=== PATIENT | female | born 1985 | race American Indian/Alaskan Native ===

== ENCOUNTER 2016-03-21 21:35 | Emergency (ER) | payer MEDICAID, OTHER ==
[2016-03-21 22:24] LABS: Basophils % (Auto) 0.5 % (0.0-1.8); Eosinophils % (Auto) 3.9 % (0.0-4.3); Hematocrit 35.8 % (30.3-42.9); Hemoglobin 11.8 gm/dl (10.1-14.3); Mean Corpuscular HGB Conc 33 % (30-34); Mean Corpuscular Hemoglobin 27 pg (28-32); Mean Corpuscular Volume 81 fl (79-97); Platelet Count 198 K/mm3 (140-440); Red Blood Count 4.45 M/mm3 (3.65-5.03); Red Cell Distribution Width 14.4 % (13.2-15.2); White Blood Count 5.1 K/mm3 (4.5-11.0)
[2016-03-21 22:33] LABS: Bilirubin,Urine NEG (Negative); Blood,Urine NEG (Negative); Ketones,Urine NEG (Negative); Leukocyte Esterase,Urine SM (Negative); Mucus,Urine FEW /HPF; Nitrite,Urine NEG (Negative); Protein,Urine <15 mg/dL mg/dL (Negative); Urobilinogen,Urine < 2.0 mg/dL (<2.0)
[2016-03-21 22:44] LABS: Alanine Aminotransferase 21 units/L (7-56); Albumin 3.5 g/dL (3.9-5); Alkaline Phosphatase 56 units/L (35-129); Bilirubin,Total < 0.2 mg/dL (0.1-1.2); Blood Urea Nitrogen 6 mg/dL (7-17); Calcium 8.7 mg/dL (8.4-10.2); Carbon Dioxide 24 mmol/L (22-30); Glucose 106 mg/dL (65-100); Lipase 28 units/L (13-60); Potassium 3.4 mmol/L (3.6-5.0); Sodium 136 mmol/L (137-145)
[2016-03-21 22:46] LABS: Anion Gap 16 mmol/L
[2016-03-22] MEDS ORDERED: TYLENOL ONE ×2 (00:20→00:21)
[2016-03-22] MEDS ORDERED: TYLENOL PO ONE (00:28)
--- NOTE | 2016-03-22 01:23 | Ultrasound Report ---
FINAL REPORT PROCEDURE: US OB < = 14 WEEKS FETUS TECHNIQUE: Real-time transabdominal and transvaginal sonography of the uterus, placenta, amniotic fluid, adnexa, and fetus was performed with image documentation. Measurements were obtained to determine age/size. M-mode Doppler was used to document heartbeat. CPT 12129 and 37513 HISTORY: lower abdominal cramping COMPARISON: No prior studies are available for comparison. FINDINGS: ADDITIONAL GESTATION: None. CRL: 48 mm, which corresponds to a gestational age of: 11 weeks, 4 days. Yolk Sac: Normal. Embryonic Cardiac Activity: 192 beats per minute Gestational Sac: There is a small subchorionic hemorrhage. Amniotic fluid: Normal. Cervix: Normal. Right Ovary: Normal. Left Ovary: Normal. Estimated delivery date: 10/07/2016 Uterus and adnexa: As above IMPRESSION: 1. Single live intrauterine gestation at approximately 11 weeks, 4 days. 2. EDC by US 10/07/2016 3. Complete anatomic survey at 18-20 weeks suggested. PROCEDURE: TECHNIQUE: HISTORY: COMPARISON: FINDINGS: IMPRESSION:
--- NOTE | 2016-03-22 01:23 | Ultrasound Report ---
FINAL REPORT PROCEDURE: US OB < = 14 WEEKS FETUS TECHNIQUE: Real-time transabdominal and transvaginal sonography of the uterus, placenta, amniotic fluid, adnexa, and fetus was performed with image documentation. Measurements were obtained to determine age/size. M-mode Doppler was used to document heartbeat. CPT 79150 and 08061 HISTORY: lower abdominal cramping COMPARISON: No prior studies are available for comparison. FINDINGS: ADDITIONAL GESTATION: None. CRL: 48 mm, which corresponds to a gestational age of: 11 weeks, 4 days. Yolk Sac: Normal. Embryonic Cardiac Activity: 192 beats per minute Gestational Sac: There is a small subchorionic hemorrhage. Amniotic fluid: Normal. Cervix: Normal. Right Ovary: Normal. Left Ovary: Normal. Estimated delivery date: 10/07/2016 Uterus and adnexa: As above IMPRESSION: 1. Single live intrauterine gestation at approximately 11 weeks, 4 days. 2. EDC by US 10/07/2016 3. Complete anatomic survey at 18-20 weeks suggested.
[2016-03-22 05:29] VITALS: BP 103/64
--- NOTE | 2016-03-23 14:02 | ED Elopement Review ---
ED Pt Elopement review - Results review Lab results: Laboratory Tests 03/21/16 03/21/16 03/21/16 22:02 22:11 22:11 WBC 5.1 RBC 4.45 Hgb 11.8 Hct 35.8 MCV 81 MCH 27 L MCHC 33 RDW 14.4 Plt Count 198 Lymph % (Auto) 14.6 [place] % (Auto) 10.0 H Eos % (Auto) 3.9 Baso % (Auto) 0.5 Lymph # 0.7 L [place] # 0.5 Eos # 0.2 Baso # 0.0 Seg Neutrophils % 71.0 H Seg Neutrophils # 3.6 Sodium 136 L Potassium 3.4 L Chloride 99.0 Carbon Dioxide 24 Anion Gap 16 BUN 6 L Creatinine 0.5 L Estimated GFR > 60 BUN/Creatinine Ratio 12.00 Glucose 106 H Calcium 8.7 Total Bilirubin < 0.2 AST 20 ALT 21 Alkaline Phosphatase 56 Total Protein 7.0 Albumin 3.5 L Albumin/Globulin Ratio 1.0 Lipase 28 HCG, Quant Urine Color Yellow Urine Turbidity Clear Urine pH 6.0 Ur Specific [place] 1.009 Urine Protein <15 mg/dl Urine Glucose (UA) Neg Urine Ketones Neg Urine Blood Neg Urine Nitrite Neg Urine Bilirubin Neg Urine Urobilinogen < 2.0 Ur Leukocyte Esterase Sm Urine WBC (Auto) 3.0 Urine RBC (Auto) 2.0 U Epithel Cells (Auto) 7.0 Urine Mucus Few 03/21/16 22:11 WBC RBC Hgb Hct MCV MCH MCHC RDW Plt Count Lymph % (Auto) [place] % (Auto) Eos % (Auto) Baso % (Auto) Lymph # [place] # Eos # Baso # Seg Neutrophils % Seg Neutrophils # Sodium Potassium Chloride Carbon Dioxide Anion Gap BUN Creatinine Estimated GFR BUN/Creatinine Ratio Glucose Calcium Total Bilirubin AST ALT Alkaline Phosphatase Total Protein Albumin Albumin/Globulin Ratio Lipase HCG, Quant 67602 H Urine Color Urine Turbidity Urine pH Ur Specific [place] Urine Protein Urine Glucose (UA) Urine Ketones Urine Blood Urine Nitrite Urine Bilirubin Urine Urobilinogen Ur Leukocyte Esterase Urine WBC (Auto) Urine RBC (Auto) U Epithel Cells (Auto) Urine Mucus - Call Back decision Pt Call Back Decision: No action required
== END 2016-03-22 19:58 | disposition left against medical advice (07) ==
LOC: ED 21:35
DX: O21.9 Vomiting of pregnancy, unspecified (principal); R50.9 Fever, unspecified; M79.1 Myalgia; R10.30 Lower abdominal pain, unspecified; E03.9 Hypothyroidism, unspecified; Z3A.11 11 weeks gestation of pregnancy; Z53.21 Procedure and treatment not carried out due to patient leaving prior to being seen by health care provider
CPT/HCPCS: 36415; 76801; 76817; 80053; 81001; 83690; 84702; 85025

== ENCOUNTER 2016-05-28 10:01 | Outpatient (CLI) | payer OTHER, MEDICAID ==
--- NOTE | 2016-05-28 11:08 | XRay Report ---
Chest 2 views: History: Tuberculosis. Findings: Normal cardiomediastinal silhouette. Trachea is midline. No consolidation, pneumothorax or pleural effusion. Impression: No acute cardiopulmonary findings.
== END 2016-05-28 10:02 | disposition home or self-care (01) ==
LOC: XRAY 10:01
PROVIDERS: ATTEND Nurse Practitioner Women's Health
DX: Z86.11 Personal history of tuberculosis (principal)
CPT/HCPCS: 71020

== ENCOUNTER 2016-05-29 14:20 | Outpatient (CLI) | payer OTHER, MEDICAID ==
[2016-05-29 14:37] VITALS: BP 107/54
[2016-05-29] MEDS ORDERED: LACTATED RINGERS 500 ML IV ONE (14:59)
[2016-05-29 15:45] LABS: Bilirubin,Urine NEG (Negative); Blood,Urine NEG (Negative); Ketones,Urine NEG (Negative); Leukocyte Esterase,Urine MOD (Negative); Mucus,Urine FEW /HPF; Nitrite,Urine NEG (Negative); Protein,Urine <15 mg/dL mg/dL (Negative); Urobilinogen,Urine < 2.0 mg/dL (<2.0)
== END 2016-05-29 15:47 | disposition home or self-care (01) ==
LOC: TRG 14:20
PROVIDERS: ATTEND Obstetrics & Gynecology
DX: O47.02 False labor before 37 completed weeks of gestation, second trimester (principal); Z3A.20 20 weeks gestation of pregnancy
CPT/HCPCS: 81001; J7120

== ENCOUNTER 2016-05-30 04:20 | Inpatient (IN) | payer OTHER, MEDICAID ==
[2016-05-30] MEDS ORDERED: LACTATED RINGERS 1,000 ML ONE (05:13)
[2016-05-30] MEDS ORDERED: ZOFRAN IV PRN ×2 (05:29→13:10)
[2016-05-30] MEDS ORDERED: ALUM-MAG HYDROX-SIMETH 200-200-20MG/5ML PO PRN (05:29)
[2016-05-30] MEDS ORDERED: TYLENOL PO PRN (05:29)
[2016-05-30] MEDS ORDERED: MILK OF MAGNESIA PO PRN ×2 (05:29→13:10)
[2016-05-30] MEDS ORDERED: MYLICON PO PRN (05:29)
[2016-05-30] MEDS ORDERED: SENOKOT S PO PRN (05:29)
[2016-05-30] MEDS ORDERED: COLACE PO PRN (05:29)
--- NOTE | 2016-05-30 05:41 | History and Physical Report ---
History of Present Illness Date of examination: 05/30/16 ( labor/known short cervix) Chief complaint: patient arrived to hospital with c/o vaginal bleeding and occasional cramping @ 20+5 weeks. This was her second visit in 24h, first visit was for cramping.[facility] Hyper[facility]-after radiation treatments and she was recently noted to have a short cervix with no residual cervix on u/s. patient started 17OHP injections 05/29/16. History of present illness: EDC Confirmation: 10/12/2016 Past History : 3 Term Births: 1 Premature Births: 1 Living Children: 2 Para: 2 # 1 Delivery date: 2010 Weeks Gestation: 39 Delivery type: Anesthesia type: epidural Delivery location: [place] Infant Sex: Male weight: 6-5 Comments: thyroid dz # 2 Delivery date: 2013 Weeks Gestation: 36.6 Delivery type: Anesthesia type: epidural Delivery location: [facility] Sex: Female weight: 7-5 Comments: thyroid dz Past Medical History: Hyperthyroidism-after radiation treatments currently hypothyroid Past Surgical History: Negative Past Surgical History Past Medical History Surgery (Non-flyer builder): Negative Past Surgical History Abnormal PAP: negative TRE Exposure: negative Infertility: negative Uterine Anomaly: negative Uterine Surgery (not C/S): negative Other Gynecologic Problems: negative Medical History Comments: thyriod dz Family Hx: Dm-mgm Breast CA-(M) aunt Social Hx: no e/t/d [place] [facility] Infection History Hx of STD: HSV II Personal hx. of genital herpes: yes Partner hx. of genital herpes: no Varicella/Chicken Pox Status: Previous Disease Genetic History Congenital Heart Defect: Mom: no Dad: no Peg Disease: Mom: no Dad: no Thalassemia Mom: no Dad: no Neural Tube Defect Mom: no Dad: no Down's Syndrome Mom: no Dad: no Castro-Sachs Mom: no Dad: no Sickle Cell Disease/Trait Mom: no Dad: no Hemophilia Mom: no Dad: no Muscular Dystrophy Mom: no Dad: no Cystic Fibrosis Mom: no Dad: no [place] Chorea Mom: no Dad: no Mental Retardation Mom: no Dad: no Fragile X Mom: no Dad: no Other Genetic/Chromosomal Disorder Mom: no Dad: no Child w/other defect Mom: no Dad: no Enviromental Exposures Xray Exposure: yes Medication, drug, or alcohol use since LMP: no Chemical/Other Exposure: no Exposure to Cat Liter: no Hx of Parvovirus (Fifth Disease): no Occupational Exposure to Children: none Comments: had xray with shield with dentist Active Medications: LIOTHYRONINE SODIUM 5 MCG ORAL TABS (LIOTHYRONINE SODIUM) LEVOTHYROXINE SODIUM 150 MCG ORAL TABS (LEVOTHYROXINE SODIUM) Current Allergies: No known allergies Past History Past Medical History: thyroid disease - Obstetrical History Expected Date of Delivery: 10/12/16 Actual Gestation: 20 Week(s) 5 Day(s) : 3 Para: 2 Hx # Term Pregnancies: 1 Number of Pregnancies: 1 Spontaneous Abortions: 0 Induced : 0 Number of Living Children: 2 Medications and Allergies Allergies Allergy/AdvReac Type Severity Reaction Status Date / Time No Known Allergies Allergy Unverified 05/30/16 05:42 Home Medications Medication Instructions Recorded Confirmed Last Taken Type Levothyroxine [Synthroid] 150 mcg PO DAILY 10/25/13 10/25/13 Unknown History Liothyronine Sodium [Cytomel] 5 mcg PO QDAY 05/30/16 05/30/16 05/29/16 History Active Meds: Active Medications Acetaminophen (Tylenol) 650 mg PO Q4H PRN PRN Reason: Pain MILD(1-3)/Fever >100.5/ENNIS Al Hydrox/Mg Hydrox/Simethicone (Alum-Mag Hydrox-Simeth 612-900-60pg/5ml) 30 ml PO Q6H PRN PRN Reason: Indigestion Docusate Sodium (Colace) 100 mg PO Q12H PRN PRN Reason: Constipation Lactated Ringer's (Lactated Ringers) 1,000 mls @ 125 mls/hr IV DIRECT KELLI Magnesium Hydroxide (Milk Of Magnesia) 30 ml PO QHS PRN PRN Reason: Laxative Effect Multivitamins/Iron/Calcium ( Vitamin) 1 each PO QDAY KELLI Ondansetron HCl (Zofran) 4 mg IV Q6H PRN PRN Reason: Nausea And Vomiting Senna/Docusate Sodium (Senokot S) 2 tab PO Q12H PRN PRN Reason: Laxative Effect Simethicone (Mylicon) 80 mg PO Q6H PRN PRN Reason: Gas pain Review of Systems All systems: negative - Vital Signs Vital signs: Vital Signs Resp 18 05/29/16 14:52 Temp Pulse Resp BP Pulse Ox 92 H 18 104/58 98 05/30/16 05:33 05/29/16 14:52 05/30/16 05:17 05/30/16 05:33 - Physical Exam Cardiovascular: Regular rate Lungs: Positive: Normal air movement Abdomen: Positive: normal appearance Genitourinary (Female): Positive: normal external genitalia, normal perenium Extremities: Positive: normal - Obstetrical Uterine Contraction Monitor Mode: External Results All other labs normal. Laboratory Data-Patient Name: KATYA VASQUEZ Test Date Result Blood Type 03/25/2016 A Rh 03/25/2016 Positive Antibody Screen negative Rubella 03/25/2016 immune Serology (RPR) 03/25/2016 nonreactive HBsAg 03/25/2016 Negative Hemoglobin 03/25/2016 11.9 Hematocrit 03/25/2016 37.9 Platelets 03/25/2016 243 [id number] Chlamydia DNA 02/26/2016 Negative GC DNA/Culture 02/26/2016 Urine Culture 05/20/2016 Final report Group B Strep cult PAP HIV 03/25/2016 Neg AFP/Quad Screen 05/20/2016 Glucola Test 3hr GTT (Fasting) 1 hr 2 hr 3 hr OPTIONAL LABS-Patient Name:KATYA VASQUEZ Test Date Result Varicella Ab Sickle Cell 03/25/2016 Negative PPD Fibronectin Cystic Fibrosis Parvovirus TSH 04/22/2016 1.060 Free T4 04/22/2016 1.12 Hepatitis C ALT AST Uric Acid Creatinine 24 hr Urine Protein BRANDEE Assessment and Plan 30 y/o @ 20w5d, no cervix noted during SVE, BBOW, no parts noted. Plan for expectant management. Spoke with patient and she is aware that she is 3 weeks away from viability and it is likely she will del a nonviable baby. - Patient Problems (1) 20 weeks gestation of Current Visit: Yes Status: Acute (2) Incompetence of cervix Current Visit: Yes Status: Acute (3) Hypothyroidism Current Visit: Yes Status: Acute Qualifiers: Hypothyroidism type: H
[2016-05-30] MEDS ORDERED: LACTATED RINGERS 1,000 ML IV SCH (06:00)
[2016-05-30 06:11] LABS: Basophils % (Auto) 0.6 % (0.0-1.8); Eosinophils % (Auto) 1.2 % (0.0-4.3); Hematocrit 34.1 % (30.3-42.9); Hemoglobin 11.2 gm/dl (10.1-14.3); Mean Corpuscular HGB Conc 33 % (30-34); Mean Corpuscular Hemoglobin 27 pg (28-32); Mean Corpuscular Volume 82 fl (79-97); Platelet Count 201 K/mm3 (140-440); Red Blood Count 4.19 M/mm3 (3.65-5.03); Red Cell Distribution Width 14.6 % (13.2-15.2)
[2016-05-30] MEDS: SYNTHROID PO SCH (06:45)
[2016-05-30] MEDS ORDERED: PRENATAL VITAMIN PO SCH (10:00)
[2016-05-30] MEDS ORDERED: PITOCin/NS 20 UNIT/1000ML DRIP 20,000 MILLIUNITS/1,000 ML BAG IV ONE (11:30)
--- NOTE | 2016-05-30 11:56 | Progress Note ---
Assessment and Plan - Patient Problems (1) labor in second trimester Current Visit: Yes Status: Acute Qualifiers: labor delivery status: P Fetus number: F Plan to address problem: -cont expectant management (2) 20 weeks gestation of Current Visit: Yes Status: Acute (3) Hypothyroidism Current Visit: Yes Status: Acute Qualifiers: Hypothyroidism type: H (4) Incompetence of cervix Current Visit: Yes Status: Acute Subjective - Subjective Date of service: 05/30/16 (LATE ENTRY PT SEEN EARLIER THIS AM) Principal diagnosis: 20 07/12 PTL Interval history: Since admission pt has continued to have more vaginal bleeding and on exam is completely dilated with a bulging bag of water. No parts could be palpated due to the bag being so tense. I d/w that she is going to delivery and that at this point there are no medications that can be given as she is fully dilated. I did d/w that I would not start any medications ie pitocin to facilitate the delivery unless there is s/sx of choroi which at this time she does not have. I spent several minutes at the bedside d/w labor vs cervical incompetence and that she may benefit from a cerclage with the next gestation. There was bloody show noted on july exam as well. Pt expressed understanding and all questions were addressed and answered. She expressed understanding of previable state of fetus and the there are not medical interventin that are done at this time due to her gestational age and the fact that the lung are still developing. Again pt expressed understanding an questions were addressed and answered. Patient reports: vaginal bleeding, contractions Objective - Vital Signs Vital Signs: Vital Signs - 12hr 05/30/16 05/30/16 05/30/16 05:13 05:17 05:18 Temperature Pulse Rate 94 H 93 H 92 H Pulse Rate [ From Monitor] Respiratory Rate Blood Pressure 104/58 Blood Pressure [Right Arm] O2 Sat by Pulse 96 97 Oximetry 05/30/16 05/30/16 05/30/16 05:23 05:28 05:32 Temperature 98.2 F Pulse Rate 93 H 98 H Pulse Rate [ From Monitor] Respiratory 20 Rate Blood Pressure Blood Pressure [Right Arm] O2 Sat by Pulse 97 98 Oximetry 05/30/16 05/30/16 05/30/16 05:33 05:38 05:43 Temperature Pulse Rate 92 H 95 H 98 H Pulse Rate [ From Monitor] Respiratory Rate Blood Pressure Blood Pressure [Right Arm] O2 Sat by Pulse 98 97 98 Oximetry 05/30/16 05/30/16 05/30/16 05:48 05:53 05:58 Temperature Pulse Rate 91 H 97 H 98 H Pulse Rate [ From Monitor] Respiratory Rate Blood Pressure Blood Pressure [Right Arm] O2 Sat by Pulse 97 97 98 Oximetry 05/30/16 05/30/16 05/30/16 06:03 06:08 06:13 Temperature Pulse Rate 95 H 97 H 97 H Pulse Rate [ From Monitor] Respiratory Rate Blood Pressure Blood Pressure [Right Arm] O2 Sat by Pulse 97 96 97 Oximetry 05/30/16 05/30/16 05/30/16 06:18 06:23 06:28 Temperature Pulse Rate 100 H 90 91 H Pulse Rate [ From Monitor] Respiratory Rate Blood Pressure Blood Pressure [Right Arm] O2 Sat by Pulse 97 98 97 Oximetry 05/30/16 05/30/16 05/30/16 06:33 06:38 06:43 Temperature Pulse Rate 87 89 96 H Pulse Rate [ From Monitor] Respiratory Rate Blood Pressure Blood Pressure [Right Arm] O2 Sat by Pulse 96 97 97 Oximetry 05/30/16 05/30/16 05/30/16 06:48 06:53 06:58 Temperature Pulse Rate 85 103 H 94 H Pulse Rate [ From Monitor] Respiratory Rate Blood Pressure Blood Pressure [Right Arm] O2 Sat by Pulse 98 97 97 Oximetry 05/30/16 05/30/16 05/30/16 07:03 07:08 07:13 Temperature Pulse Rate 90 96 H 97 H Pulse Rate [ From Monitor] Respiratory Rate Blood Pressure Blood Pressure [Right Arm] O2 Sat by Pulse 98 97 97 Oximetry 05/30/16 05/30/16 05/30/16 07:18 07:19 07:22 Temperature 98.7 F Pulse Rate 94 H 92 H Pulse Rate [ 92 H From Monitor] Respiratory 18 Rate Blood Pressure 102/61 Blood Pressure 102/61 [Right Arm] O2 Sat by Pulse 94 94 Oximetry 05/30/16 05/30/16 05/30/16 07:23 07:28 07:33 Temperature Pulse Rate 91 H 93 H 103 H Pulse Rate [ From Monitor] Respiratory Rate Blood Pressure Blood Pressure [Right Arm] O2 Sat by Pulse 97 97 98 Oximetry 05/30/16 05/30/16 07:38 07:43 Temperature Pulse Rate 93 H 86 Pulse Rate [ From Monitor] Respiratory Rate Blood Pressure Blood Pressure [Right Arm] O2 Sat by Pulse 98 96 Oximetry - Exam Uterus: Present: normal FHR: auscultation normal Cervical Dilatation: 10 Cervical Effacement Percentage: 100 station: 1+(amiotic bag/ not fetus as it was not palpated on exam) Uterine Contraction Pattern: Irregular - Labs Labs: Abnormal Labs 05/30/16 05:20 MCH 27 L Laboratory Results - last 24 hr 05/30/16 05/30/16 05:20 05:20 WBC 10.0 RBC 4.19 Hgb 11.2 Hct 34.1 MCV 82 MCH 27 L MCHC 33 RDW 14.6 Plt Count 201 Lymph % (Auto) 22.6 [place] % (Auto) 6.3 Eos % (Auto) 1.2 Baso % (Auto) 0.6 Lymph # 2.3 [place] # 0.6 Eos # 0.1 Baso # 0.1 Seg Neutrophils % 69.3 Seg Neutrophils # 7.0 Blood Type A POSITIVE Antibody Screen Negative
[2016-05-30] MEDS ORDERED: SUBLIMAZE IV PRN (12:00)
[2016-05-30] MEDS ORDERED: SUBLIMAZE IV SCH (12:00)
[2016-05-30] MEDS ORDERED: PITOCin/NS 30 UNIT/500ML 30 UNITS/500 ML BAG IV SCH (12:00)
[2016-05-30] MEDS ORDERED: PITOCin/NS 20 UNIT/1000ML DRIP 20 UNITS/1,000 ML BAG IV SCH (12:00)
[2016-05-30] MEDS ORDERED: STADOL IV PRN (12:16)
--- NOTE | 2016-05-30 12:23 | Consultation ---
History of Present Illness Consult date: 05/30/16 Past History Past Medical History: thyroid disease - Obstetrical History : 3 Medications and Allergies Allergies Allergy/AdvReac Type Severity Reaction Status Date / Time No Known Allergies Allergy Unverified 05/30/16 05:42 Home Medications Medication Instructions Recorded Confirmed Last Taken Type Levothyroxine [Synthroid] 150 mcg PO DAILY 10/25/13 05/30/16 05/29/16 History Liothyronine Sodium [Cytomel] 5 mcg PO QDAY 05/30/16 05/30/16 05/29/16 History Vit-Fe Fumar-FA [ 1 tab PO QDAY 05/30/16 05/30/16 05/29/16 History Vitamin] Active Meds: Active Medications Acetaminophen (Tylenol) 650 mg PO Q4H PRN PRN Reason: Pain MILD(1-3)/Fever >100.5/ENNIS Al Hydrox/Mg Hydrox/Simethicone (Alum-Mag Hydrox-Simeth [id number]/5ml) 30 ml PO Q6H PRN PRN Reason: Indigestion Butorphanol Tartrate (Stadol) 2 mg IV Q2H PRN PRN Reason: Labor Pain Docusate Sodium (Colace) 100 mg PO Q12H PRN PRN Reason: Constipation Fentanyl (Sublimaze) 100 mcg IV Q2H PRN PRN Reason: LABOR PAINS Last Admin: 05/30/16 11:23 Dose: 100 mcg Lactated Ringer's (Lactated Ringers) 1,000 mls @ 125 mls/hr IV DIRECT KELLI Oxytocin/Sodium Chloride (Pitocin/Ns 20 Unit/1000ml Drip) 20 units in 1,000 mls @ 125 mls/hr IV DIRECT KELLI Oxytocin/Sodium Chloride (Pitocin/Ns 30 Unit/500ml) 30 units in 500 mls @ 0 mls /hr IV TITR KELLI; As Directed PRN Reason: Protocol Levothyroxine Sodium (Synthroid) 150 mcg PO DAILY@0600 [facility] Last Admin: 05/30/16 06:45 Dose: 150 mcg Magnesium Hydroxide (Milk Of Magnesia) 30 ml PO QHS PRN PRN Reason: Laxative Effect Multivitamins/Iron/Calcium ( Vitamin) 1 each PO QDAY [facility] Last Admin: 05/30/16 10:40 Dose: 1 each Ondansetron HCl (Zofran) 4 mg IV Q6H PRN PRN Reason: Nausea And Vomiting Senna/Docusate Sodium (Senokot S) 2 tab PO Q12H PRN PRN Reason: Laxative Effect Simethicone (Mylicon) 80 mg PO Q6H PRN PRN Reason: Gas pain - Vital Signs Vital signs: Vital Signs Resp 18 05/29/16 14:52 Temp Pulse Resp BP Pulse Ox 98.5 F 77 20 99/58 97 05/30/16 11:58 05/30/16 11:58 05/30/16 11:58 05/30/16 11:58 05/30/16 11:58 Results Result Diagrams: 05/30/16 05:20 Abnormal lab results 05/30/16 Range/Units 05:20 MCH 27 L (28-32) pg All other labs normal. Assessment and Plan PT seen Full consult on chart
--- NOTE | 2016-05-30 13:02 | Event Note ---
Date: 05/30/16 Called by nursing staff. Arrived to find pt delivered with fetus in sac and placenta still attached.
--- NOTE | 2016-05-30 13:08 | Procedure Note ---
OB Delivery Note - Delivery Date of Delivery: 05/30/16 Surgeon: JERSEY BLANCAS Estimated blood loss: 200cc - Vaginal Delivery presentation: vertex Delivery position: OA Intrapartum events: labor-<37 weeks Delivery induction: none Delivery monitor: external uterine Route of delivery: Anesthesia: intravenous Delivery comments: Pt delivered the fetus in the bag with the cord attached. Minimal bleeding noted after delivery. Several clots noted prior to and after delivery that was passed. EBL 200ml.
[2016-05-30] MEDS ORDERED: DERMOPLAST TP PRN (13:10)
[2016-05-30] MEDS ORDERED: NORCO 5/325 PO PRN (13:10)
[2016-05-30] MEDS ORDERED: TUCKS PAD TP PRN (13:10)
[2016-05-30] MEDS ORDERED: DULCOLAX PR PRN (13:10)
[2016-05-30] MEDS ORDERED: PHENERGAN PO PRN (13:10)
[2016-05-30] MEDS ORDERED: BENADRYL PO PRN (13:10)
[2016-05-30] MEDS ORDERED: PHENERGAN PR PRN (13:10)
[2016-05-30] MEDS ORDERED: LANSINOH TP PRN (13:10)
[2016-05-30] MEDS ORDERED: SODIUM CHLORIDE FLUSH SYRINGE 10 ML IV NR (14:00)
[2016-05-30] MEDS: MOTRIN PO SCH (20:20)
[2016-05-31 01:40] LABS: Hematocrit 29.6 % (30.3-42.9); Hemoglobin 9.6 gm/dl (10.1-14.3)
[2016-05-31] MEDS: MOTRIN PO SCH ×2 (02:00→09:55)
[2016-05-31] MEDS: SYNTHROID PO SCH (07:03)
--- NOTE | 2016-05-31 10:19 | Discharge Summary ---
Providers - Providers Date of Admission: 05/30/16 06:25 Date of discharge: 05/31/16 Attending physician: ALEAH DAHL 05/30/16 05:55 Consult to Physician [CONS] Urgent Consulting Provider: KELLI HEATH Reason For Exam: incompetant cervix Place consult to:: [facility] Notified:: n Primary care physician: ANGELI POWELL Hospitalization Reason for admission: active labor Delivery: Procedure details: see delivery note Episiotomy: none Laceration: none Hospital course: Pt with delivery at 20 weeks. Post course was not complicated. Pt will be d/c home today. Condition at discharge: Good Disposition: DISCHARGED TO HOME OR SELFCARE - Discharge Diagnoses (1) labor in second trimester Status: Acute Qualifiers: labor delivery status: P Fetus number: F (2) 20 weeks gestation of Status: Acute (3) Hypothyroidism Status: Acute Qualifiers: Hypothyroidism type: H (4) Incompetence of cervix Status: Acute Plan - Provider Discharge Summary Additional instructions: [] Smoking cessation referral if applicable(refer to patient education folder for contact #) [] Refer to [facility]'s [facility] Booklet Call your doctor immediately for: * Fever > 100.5 * Heavy vaginal bleeding ( >1 pad per hour) * Severe persistent headache * Shortness of breath * Reddened, hot, painful area to leg or breast * Drainage or odor from incision. * Keep incision clean and dry at all times and follow doctor's instructions regarding bathing/showering - Follow up plan Follow up: ANGELI POWELL MD [Primary Care Provider] - 7 Days
[2016-05-31 12:01] VITALS: BP 97/68
--- NOTE | 2016-06-01 07:45 | Ultrasound Report ---
OB ULTRASOUND History: labor. Comment: This examination is just presented to me for interpretation. Technique: Transabdominal ultrasound with Doppler interrogation. Gestation: Single Position: Cephalic Amniotic Fluid: Within normal limits BENIGNO = cm Placenta: Anterior Placental Grade: 0 Heart Rate: 164 BPM Cervical length: 0.0 cm (Normal > 3 cm). The cervix appears to be open or extremely thinned. The cervical canal measures approximately 3 cm in diameter. NEUROANATOMY VISUALIZED: Choroid Plexus Cisterna Magnum Cerebellum Lateral Ventricle ANATOMY VISUALIZED: Stomach Kidneys Bladder Diaphragm 4 Chamber Heart Heart 3 Vessel Cord Abd. Cord Insert SPINE VISUALIZED: Longitudinal Transverse AP Limited spine due to position BPD: 4.8 cm = 20 w 4 d HC: 18.1 cm = 20 w 3 d AC: 17.4 cm = 22 w 2 d FL: 3.7 cm = 21 w 5 d HC/AC Ratio: 1.04 Cephalic Index: 78.6 Estimated Weight: 452 grams LMP: Not given Clinical age = 20 w 5 d EDC: 10/12/16 US Gest. Age = 21 w 2 d EDC: 10/08/16
== END 2016-05-31 11:55 | disposition home or self-care (01) | DRG 775 ==
LOC: TRG 04:20 → LD 04:45 → TRG 06:24 → LD 06:25 → OB 17:49
PROVIDERS: ADMIT Obstetrics & Gynecology; ATTEND Obstetrics & Gynecology
PROC: 10E0XZZ Delivery of Products of Conception, External Approach (ICD-10-PCS; principal; 2016-05-30)
DX: O60.12X0 Preterm labor second trimester with preterm delivery second trimester, not applicable or unspecified (principal); O34.32 Maternal care for cervical incompetence, second trimester; O99.284 Endocrine, nutritional and metabolic diseases complicating childbirth; E03.9 Hypothyroidism, unspecified; Z37.1 Single stillbirth; Z3A.20 20 weeks gestation of pregnancy
CPT/HCPCS: 36415; 76805; 85014; 85018; 85025; 86850; 86900; 86901; 88305; J0595; J2590; J3010; J7120

== ENCOUNTER 2017-01-15 05:43 | Day surgery (SDC) | payer OTHER, MEDICAID ==
--- NOTE | 2017-01-14 22:17 | History and Physical Report ---
History of Present Illness Date of examination: 01/11/17 History of present illness: Patient admitted for placement of cerclage due to diagnosis of cervical incompetence Menstrual History Regularity: regular Menses every: 25 days Duration: 7 LMP: 10/10/2016 LMP reliability: month known LMP character: normal test type: urine test Date: 11/18/2016 BC at conception: none Planned ? no EDC Calculations LMP: 07/17/2017 EDC Confirmation: 07/17/2017 Past History : 4 Term Births: 1 Premature Births: 2 Living Children: 2 Para: 2 Mult. Births: 0 Prev : 0 Prev. attempt? 0 Aborta: 0 Elect. Ab: 0 Spont. Ab: 0 Ectopics: 0 # 1 Delivery date: 2010 Weeks Gestation: 39 Delivery type: Anesthesia type: epidural Delivery location: [place] Sex: Male weight: 6-5 Comments: thyroid dz # 2 Delivery date: 2013 Weeks Gestation: 36.6 Delivery type: Anesthesia type: epidural Delivery location: [facility] Infant Sex: Female weight: 7-5 Comments: thyroid dz # 3 Delivery date: 05/30/2016 Weeks Gestation: 20 Delivery type: Vaginal Anesthesia type: none Comments: labor CERVICAL INCOMPETENCE Past Medical History: : Hyperthyroidism-after radiation treatments currently hypothyroid Past Surgical History: Negative Past Surgical History Family History Summary: General Comments - FH: Dm-mgm Breast CA-(M) aunt Social History: no e/t/d [place] Past Medical History Abnormal PAP: negative TRE Exposure: negative Infertility: negative Uterine Anomaly: negative Uterine Surgery (not C/S): negative Other Gynecologic Problems: negative 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 of genital herpes: yes Genetic History Congenital Heart Defect: Mom: no Dad: no Peg Disease: Mom: no Dad: no Thalassemia Mom: no Dad: no Neural Tube Defect Mom: no Dad: no Down's Syndrome Mom: no Dad: no Castro-Sachs Mom: no Dad: no Sickle Cell Disease/Trait Mom: no Dad: no Hemophilia Mom: no Dad: no Muscular Dystrophy Mom: no Dad: no Cystic Fibrosis Mom: no Dad: no [place] Chorea Mom: no Dad: no Mental Retardation Mom: no Dad: no Fragile X Mom: no Dad: no Other Genetic/Chromosomal Disorder Mom: no Dad: no Child w/other defect Mom: no Dad: no Enviromental Exposures Xray Exposure: no Medication, drug, or alcohol use since LMP: yes Exposure to Cat Liter: no Current Allergies (reviewed today): No known allergies Past History Past Medical History: other (See HPI) Past Surgical History: Other (See HPI) Family history: other (See HPI) Medications and Allergies Allergies Allergy/AdvReac Type Severity Reaction Status Date / Time No Known Allergies Allergy Unverified 05/30/16 05:42 Home Medications Medication Instructions Recorded Confirmed Last Taken Type Levothyroxine [Synthroid] 150 mcg PO DAILY 10/25/13 01/15/17 01/14/17 History Liothyronine Sodium [Cytomel] 5 mcg PO QDAY 05/30/16 01/15/17 01/14/17 History Vit-Fe Fumar-FA [ 1 tab PO QDAY 05/30/16 01/15/17 01/14/17 History Vitamin] Active Meds: Active Medications Famotidine (Pepcid) 20 mg IV ONCE ONE Stop: 01/15/17 07:01 Lactated Ringer's (Lactated Ringers) 1,000 mls @ 2,250 mls/hr IV PREOP KELLI Stop: 01/16/17 06:27 Metoclopramide HCl (Reglan) 10 mg IV ONCE ONE Stop: 01/15/17 07:01 Exam - Physical Exam Narrative exam: HEENT: normocephalic, no lesions or deformities Neck/Thyroid: supple, thyroid normal Skin no abnormal lesions or rashes Chest: respiratory effort normal, clear to auscultation Breasts: normal without skin changes or masses CV: regular, normal S1-S2, no murmur, no rub, no gallop Abdomen: Obese, normal bowel sounds, soft, nontender, no HSM Musculoskeletal: grossly normal ROM in joints, no joint tenderness or muscle weakness Neuro: no gross anomalities Extremities: no discoloration or edema ISOLATION WASHER Exams Vulva/Vagina: normal appearance, no discharge, lesions. No evidence of cystocele or rectocele. Cervix: normal appearance, no lesions, no discharge Uterus: normal position, midline, mobile Adnexae: no masses or tenderness Rectovaginal: exam defered Results - Labs CBC & Chem 7: 01/15/17 06:15 Assessment and Plan - Patient Problems (1) Incompetence of cervix Current Visit: No Status: Acute Plan to address problem: Discussed the risks of bleeding, infection, possible rupture of membrane, possible damage to bladder and bowel.Indications for and description of the procedure given. Questions answered. Patient agrees to proceed with cerclage
[2017-01-15] MEDS: LACTATED RINGERS 1,000 ML IV SCH ×2 (06:19→07:00)
[2017-01-15 06:47] LABS: Basophils % (Auto) 0.9 % (0.0-1.8); Eosinophils % (Auto) 1.3 % (0.0-4.3); Hemoglobin 11.7 gm/dl (10.1-14.3); Mean Corpuscular HGB Conc 34 % (30-34); Mean Corpuscular Hemoglobin 27 pg (28-32); Mean Corpuscular Volume 81 fl (79-97); Platelet Count 186 K/mm3 (140-440); Red Blood Count 4.34 M/mm3 (3.65-5.03); Red Cell Distribution Width 15.5 % (13.2-15.2)
[2017-01-15] MEDS ORDERED: PEPCID IV ONE (07:00)
[2017-01-15] MEDS ORDERED: REGLAN IV ONE (07:00)
--- NOTE | 2017-01-15 07:24 | Anesthesia Consultation ---
Anesthesia Consult and Med Hx Date of service: 01/15/17 - Airway Anesthetic Teeth Evaluation: Good ROM Head & Neck: Adequate Mental/Hyoid Distance: Adequate Mallampati Class: Class II Intubation Access Assessment: Probably Good - Pulmonary Exam CTA: Yes - Cardiac Exam Cardiac Exam: RRR - Pre-Operative Health Status ASA Pre-Surgery Classification: ASA2 Proposed Anesthetic Plan: Spinal - Pulmonary Hx Asthma: No COPD: No Hx Pneumonia: No - Cardiovascular System Hx Hypertension: No - Central Nervous System Hx Seizures: No Hx Psychiatric Problems: No - Endocrine Hx Renal Disease: No Hx End Stage Renal Disease: No Hx Hypothyroidism: Yes (takes meds) Hx Hyperthyroidism: No - Hematic Hx Anemia: No Hx Sickle Cell Disease: No - Other Systems Hx Alcohol Use: No
[2017-01-15] MEDS ORDERED: DILAUDID IV PRN (07:25)
--- NOTE | 2017-01-15 07:25 | Anesthesia Day of Surgery ---
Anesthesia Day of Surgery - Day of Surgery Patient Examined: Yes Patient H&P Reviewed: Yes Patient is NPO: Yes
[2017-01-15] MEDS ORDERED: BICITRA PO ONE (07:30)
[2017-01-15] MEDS ORDERED: WATER FOR IRRIG STERILE IR ONE (07:50)
--- NOTE | 2017-01-15 08:12 | Operative Report ---
Operative Report Operative Report: Date of procedure: 01/15/2017 Pre-operative diagnosis: Incompetent cervix, mild cystocele Post-operative diagnosis: Same Procedure name(s): Clarisse cervical cerclage Surgeon: Barry Puri MD Rack Pusher: Anesthesia: Spinal EBL: Minimal Complications: None Findings: Patient was a second-degree cystocele cervix approximately 3 negative past centimeters in length. Specimen(s): None Procedure: Patient was brought to the operating room where spinal anesthesia was induced without difficulty. Patient was then placed in candy cane hanging stirrups. Patient was prepped and draped in usual sterile manner. Bladder was emptied with a red rubber catheter. Weighted speculum was placed in her vagina. The administrative assistant coordinator retracted the bladder anteriorly. Her cervical exam as noted above. Starting at 1:00 using Ethibond Xceed suture the first stitch of the cerclage was placed in pursestring fashion. With the knot tied at 1:00 under moderate stress with no evidence of rupture of amniotic sac. A second stitch was placed in similar fashion slightly distal to the first. The cervix was hemostatic nourished menstrual removed. The patient was counseled to recovery room in good condition. Instrument count correct 2.
--- NOTE | 2017-01-15 08:21 | Short Stay Summary ---
Short Stay Documentation Date of service: 01/15/17 - History H&P: dictated Past Medical History: other (See HPI) Past Surgical History: Other (See HPI) - Allergies and Medications Current Medications: Allergies No Known Allergies Allergy (Unverified 05/30/16 05:42) Home Medications Medication Instructions Recorded Confirmed Last Taken Type Levothyroxine [Synthroid] 150 mcg PO DAILY 10/25/13 01/15/17 01/14/17 History Liothyronine Sodium [Cytomel] 5 mcg PO QDAY 05/30/16 01/15/17 01/14/17 History Vit-Fe Fumar-FA [ 1 tab PO QDAY 05/30/16 01/15/17 01/14/17 History Vitamin] Active Medications Hydromorphone HCl (Dilaudid) 0.25 mg IV Q10MIN PRN PRN Reason: Pain, Moderate (4-6) Stop: 01/18/17 07:26 Lactated Ringer's (Lactated Ringers) 1,000 mls @ 2,250 mls/hr IV PREOP KELLI Stop: 01/16/17 06:27 Last Admin: 01/15/17 07:00 Dose: 2,250 mls/hr Ondansetron HCl (Zofran) 4 mg IV ONCE PRN PRN Reason: Nausea And Vomiting Stop: 01/15/17 07:26 Oxycodone/Acetaminophen (Percocet 5/325) 1 tab PO ONCE PRN PRN Reason: Pain, Moderate (4-6) Stop: 01/15/17 07:26 - Brief post op/procedure progress note Date of procedure: 01/15/17 (see dictated op note) - Hospital course Hospital course: Patient was admitted underwent the above him procedure without any complications. Patient will be discharged with follow-up in office in 1-2 weeks for postop check. - Disposition Disposition: DC- TO HOME OR SELFCARE - Discharge Diagnoses (1) Incompetence of cervix Status: Acute Short Stay Discharge Plan Activity: advance as tolerated Diet: regular Special Instructions: other (no sex) Follow up with: ANGELI POWELL MD [Primary Care Provider] - 7 Days
--- NOTE | 2017-01-15 08:27 | Post Anesthesia Evaluation ---
- Post Anesthesia Evaluation Patient Participated: Yes Airway Patent: Yes Stable Respiratory Function: Yes Temp > 96.8F: Yes Pain Manageable: Yes Adequeate Hydration: Yes Anesthesia Complications: No
[2017-01-15] MEDS ORDERED: LACTATED RINGERS 1,000 ML IV SCH (09:00)
[2017-01-15] MEDS ORDERED: COLACE PO PRN (10:00)
[2017-01-15] MEDS ORDERED: PERCOCET 5/325 PO PRN ×3 (10:00→11:00)
[2017-01-15] MEDS ORDERED: TYLENOL PO PRN (10:00)
[2017-01-15] MEDS ORDERED: ZOFRAN IV PRN (10:00)
[2017-01-15 13:03] VITALS: BP 107/59
== END 2017-01-15 13:15 | disposition home or self-care (01) ==
LOC: LDOR 05:43 → TRG 06:09 → APU 06:50 → LDOR 13:15
PROVIDERS: ATTEND Obstetrics & Gynecology
DX: O34.31 Maternal care for cervical incompetence, first trimester (principal); O34.81 Maternal care for other abnormalities of pelvic organs, first trimester; N81.10 Cystocele, unspecified; O99.281 Endocrine, nutritional and metabolic diseases complicating pregnancy, first trimester; E89.0 Postprocedural hypothyroidism; Z79.899 Other long term (current) drug therapy; Z92.3 Personal history of irradiation; Z3A.13 13 weeks gestation of pregnancy
CPT/HCPCS: 36415; 59320; 85025; 96360; J2765; J7120

== ENCOUNTER 2017-02-03 19:38 | Emergency (ER) | payer OTHER, MEDICAID ==
[2017-02-03 20:23] VITALS: BP 108/61
[2017-02-03 20:54] LABS: Bacteria,Urine 1+ /HPF (Negative); Bilirubin,Urine NEG (Negative); Blood,Urine NEG (Negative); Ketones,Urine TR mg/dL (Negative); Leukocyte Esterase,Urine SM (Negative); Mucus,Urine FEW /HPF; Nitrite,Urine NEG (Negative); Protein,Urine <15 mg/dL mg/dL (Negative); Urobilinogen,Urine < 2.0 mg/dL (<2.0)
--- NOTE | 2017-02-03 23:19 | Ultrasound Report ---
FINAL REPORT EXAM: US OB > = 14 WEEKS FETUS HISTORY: abd pain TECHNIQUE: Ultrasound pelvis transabdominal PRIORS: Comparison is dated March 22, 2016 FINDINGS: Single live intrauterine gestation present Placenta is posterior and fundal cardiac activity is present heart rate of 160 beats per minute cervical length is 2.8 centimeters. There has been placement of a cervical cerclage. position is breech following structures appear unremarkable, choroid plexus, cisterna magna, cerebellum, lateral ventricle, stomach, kidneys, urinary bladder, diaphragm, four-chamber view of the heart and 3 vessel cord biometric measurements were obtained Biparietal diameter 16 weeks 6 days Head circumference 17 weeks 3 days Abdominal circumference 17 weeks 6 days Femur length 17 weeks 6 days Estimated weight is 208 grams Amniotic fluid volume appears adequate. Estimated gestational age based on today's exam is 17 weeks 4 days with estimated delivery July 10, 2017 IMPRESSION: Single live intrauterine gestation estimated at 17 weeks 4 days
== END 2017-02-04 01:48 | disposition left against medical advice (07) ==
LOC: ED 19:38
DX: R10.9 Unspecified abdominal pain (principal); Z53.21 Procedure and treatment not carried out due to patient leaving prior to being seen by health care provider
CPT/HCPCS: 76805; 81001; 81025

== ENCOUNTER 2017-02-07 18:58 | Inpatient (IN) | payer OTHER, MEDICAID ==
--- NOTE | 2017-02-07 20:20 | Emergency Department Report ---
ED HPI - General Chief complaint: OB/Uterine Contractions Stated complaint: WATER BROKE 17 WKS Time Seen by Provider: 02/07/17 20:07 Source: patient Mode of arrival: Ambulatory Limitations: No Limitations - History of Present Illness Initial comments: Patient is 31 years old female 4 para 2 with one miscarriage at 20 weeks in June 2016 history of incompetent cervix. She presented today with contraction and bloody spotting started last night she was seen at [facility] she had a pelvic exam showed that the cervix is 2 cm dilated, ultrasound was done yesterday and showed baby is fine. Patient told me that she had a cerclage done on 01/15/2017. She stated that today around 1730 patient felt a pop and a gush of water came on and since then she has been leaking. Patient denied any fever, nausea or vomiting. MD Complaint: "contractions" - Related Data Home Medications Medication Instructions Recorded Confirmed Last Taken Levothyroxine [Synthroid] 150 mcg PO DAILY 10/25/13 01/15/17 01/14/17 Liothyronine Sodium [Cytomel] 5 mcg PO QDAY 05/30/16 01/15/17 01/14/17 Vit-Fe Fumar-FA [ 1 tab PO QDAY 05/30/16 01/15/17 01/14/17 Vitamin] Allergies Allergy/AdvReac Type Severity Reaction Status Date / Time No Known Allergies Allergy Verified 02/07/17 19:19 ED Review of Systems ROS: Stated complaint: WATER BROKE 17 WKS Other details as noted in HPI Comment: All other systems reviewed and negative Constitutional: denies: chills, fever Respiratory: denies: cough, shortness of breath, SOB with exertion Cardiovascular: denies: chest pain, palpitations, dyspnea on exertion ED Past Medical Hx - Past Medical History Previous Medical History?: Yes Hx Hypertension: No Hx Congestive Heart Failure: No Hx Diabetes: No Hx Deep Vein Thrombosis: No Hx Renal Disease: No Hx Sickle Cell Disease: No Hx Seizures: No Hx Asthma: No Hx COPD: No Hx HIV: No Additional medical history: HYPOTHRYROIDISM, incompetent cervix, delivery at 20 weeks - Surgical History Past Surgical History?: Yes Additional Surgical History: cervical cerclage x1 month, oral surgery - Social History Smoking Status: Never Smoker Substance Use Type: None - Medications Home Medications: Home Medications Medication Instructions Recorded Confirmed Last Taken Type Levothyroxine [Synthroid] 150 mcg PO DAILY 10/25/13 01/15/17 01/14/17 History Liothyronine Sodium [Cytomel] 5 mcg PO QDAY 05/30/16 01/15/17 01/14/17 History Vit-Fe Fumar-FA [ 1 tab PO QDAY 05/30/16 01/15/17 01/14/17 History Vitamin] ED Physical Exam - General Limitations: No Limitations General appearance: alert, in no apparent distress - Head Head exam: Present: atraumatic, normocephalic - Eye Eye exam: Present: normal appearance - ENT ENT exam: Present: normal exam - Neck Neck exam: Present: normal inspection - Respiratory Respiratory exam: Present: normal lung sounds bilaterally. Absent: respiratory distress, wheezes, rales, rhonchi, chest wall tenderness - Cardiovascular Cardiovascular Exam: Present: regular rate, normal rhythm, normal heart sounds - GI/Abdominal GI/Abdominal exam: Present: soft, normal bowel sounds. Absent: distended, tenderness, guarding, rebound, rigid, mass, bruit, pulsatile mass - Extremities Exam Extremities exam: Present: normal inspection, normal capillary refill - Back Exam Back exam: Present: normal inspection. Absent: CVA tenderness (R), CVA tenderness (L) - Neurological Exam Neurological exam: Present: alert, oriented X3, CN II-XII intact - Skin Skin exam: Present: warm, intact, normal color ED Course Vital Signs 02/07/17 19:19 Temperature 98.7 F Pulse Rate 97 H Respiratory 18 Rate Blood Pressure 109/61 O2 Sat by Pulse 99 Oximetry ED Medical Decision Making - Lab Data Result diagrams: 02/07/17 20:47 02/07/17 20:47 - Radiology Data Radiology results: report reviewed Pelvic ultrasound/ ultrasound showed severe oligohydramnios. - Medical Decision Making Discussed with , I informed her about the patient, she is stated that she is coming to evaluate the patient in the ER. Patient evaluated by Dr. Storey, she decided to admit the patient to her service. Critical care attestation.: If time is entered above; I have spent that time in minutes in the direct care of this critically ill patient, excluding procedure time. ED Disposition Clinical Impression: Rupture, membranes, premature, Incompetence of cervix, Oligohydramnios due to rupture of membranes Disposition: DC-09 OP ADMIT IP TO THIS HOSP Is pt being admited?: No Condition: Stable Referrals: PRIMARY CARE, [Referring] - 3-5 Days
[2017-02-07] MEDS ORDERED: NACL 0.9% 1000 ML 1,000 ML IV ONE (20:27)
[2017-02-07 21:10] LABS: Basophils % (Auto) 0.5 % (0.0-1.8); Eosinophils % (Auto) 1.5 % (0.0-4.3); Hematocrit 36.5 % (30.3-42.9); Hemoglobin 11.9 gm/dl (10.1-14.3); Mean Corpuscular HGB Conc 33 % (30-34); Mean Corpuscular Hemoglobin 27 pg (28-32); Mean Corpuscular Volume 81 fl (79-97); Platelet Count 179 K/mm3 (140-440); Red Cell Distribution Width 15.1 % (13.2-15.2); White Blood Count 9.7 K/mm3 (4.5-11.0)
[2017-02-07 21:18] LABS: Alanine Aminotransferase 16 units/L (7-56); Albumin 3.2 g/dL (3.9-5); Alkaline Phosphatase 49 units/L (35-129); Anion Gap 16 mmol/L; BUN/Creatinine Ratio 10; Bilirubin,Total < 0.20 mg/dL (0.1-1.2); Blood Urea Nitrogen 4 mg/dL (7-17); Calcium 8.4 mg/dL (8.4-10.2); Carbon Dioxide 23 mmol/L (22-30); Chloride 99.5 mmol/L (98-107); Glucose 77 mg/dL (65-100); Potassium 3.7 mmol/L (3.6-5.0); Sodium 135 mmol/L (137-145); Total Protein 6.3 g/dL (6.3-8.2)
--- NOTE | 2017-02-07 21:34 | Event Note ---
Date: 02/07/17 Appears to be SROM. Will admit for obs
[2017-02-07 21:36] LABS: Bilirubin,Urine NEG (Negative); Blood,Urine LG (Negative); Ketones,Urine NEG (Negative); Leukocyte Esterase,Urine LG (Negative); Nitrite,Urine NEG (Negative); Urobilinogen,Urine < 2.0 mg/dL (<2.0)
[2017-02-07 21:37] LABS: RBC,Urine > 182.0 /HPF (0.0-6.0)
--- NOTE | 2017-02-07 22:10 | Ultrasound Report ---
FINAL REPORT PROCEDURE: Obstetrical ultrasound. TECHNIQUE: Real-time transabdominal sonography of the uterus, placenta, amniotic fluid, adnexa, and fetus was performed with image documentation. Measurements were obtained to determine age/size. M-mode Doppler was used to document heartbeat. CPT 58878 HISTORY: 17 wks, Water Broke, assess for Amniotic fluids COMPARISON: Obstetrical ultrasound 02/03/2017. FINDINGS: There is a single intrauterine fetus in breech presentation. Cardiac activity is documented at 119 beats per minute. There is no visible amniotic fluid. The amniotic fluid index measures less than 1 centimeter. The placenta is posterior in location. The measured parameters are as follows: Biparietal diameter 3.7 centimeters, head circumference 14.4 centimeters, abdominal circumference 12.7 centimeters, femur length 2.4 centimeters. The calculated menstrual age is 17 weeks 5 days. The estimated date of confinement is 07/13/2017. IMPRESSION: Severe oligohydramnios. Viable fetus in breech presentation.
[2017-02-07] MEDS ORDERED: TYLENOL PO PRN (22:53)
[2017-02-07] MEDS ORDERED: COLACE PO PRN (22:53)
--- NOTE | 2017-02-07 23:04 | History and Physical Report ---
History of Present Illness Date of examination: 02/07/17 Date of admission: 02/07/2017 Chief complaint: gush of fluid History of present illness: Pt presents to ER after having called provider earlier this evening c/o large gush of fluid. she was not sure at the time if it were amniotic fluid. She was advised to place a pad and observe. Pt states shortly after 5pm she had another episode prompting her to f/u in the ER. Sono shows breech IUP at 17 5/7 with severe oligo. Exam is inconclusive to SROm as only blood seen in the vault and no pooing of amniotic fluid. Findings are c/w with SROM. Pt admitted for antibx and obs at this time for inevitable . Pt has had previous episode of PTL at 20 wks in May of 2016 resulting in diagnosis of cervical incompetence and placement of cerclage with this gestation on last month. Pt denies any fevers or chills but does c/o having vaginal bleeding and lower abdominal pain. Pt was advised when seen by mfm on 02/02/17 that there was a CL of 0.5cm and cx noted funneling below the level of the cerclage stitch. At this time pt was provide SAB precautions. Past History Past Medical History: thyroid disease Past Surgical History: other (cerclage) Social history: no significant social history, - Obstetrical History Expected Date of Delivery: 07/17/17 Actual Gestation: 17 Week(s) 1 Day(s) : 4 Para: 2 Spontaneous Abortions: 1 Number of Living Children: 2 Medications and Allergies Allergies Allergy/AdvReac Type Severity Reaction Status Date / Time No Known Allergies Allergy Verified 02/07/17 19:19 Home Medications Medication Instructions Recorded Confirmed Last Taken Type Levothyroxine [Synthroid] 150 mcg PO DAILY 10/25/13 01/15/17 01/14/17 History Liothyronine Sodium [Cytomel] 5 mcg PO QDAY 05/30/16 01/15/17 01/14/17 History Vit-Fe Fumar-FA [ 1 tab PO QDAY 05/30/16 01/15/17 01/14/17 History Vitamin] Active Meds: Active Medications Acetaminophen (Tylenol) 650 mg PO Q4H PRN PRN Reason: Pain MILD(1-3)/Fever >100.5/ENNIS Docusate Sodium (Colace) 100 mg PO Q12H PRN PRN Reason: Constipation Cefazolin Sodium (Ancef/Ns 1 Gm/50 Ml) 1 gm in 50 mls @ 100 mls/hr IV Q8H KELLI PRN Reason: Protocol Multivitamins/Iron/Calcium ( Vitamin) 1 each PO QDAY KELLI - Vital Signs Vital signs: Vital Signs Temp Pulse Resp BP Pulse Ox 98.7 F 97 H 18 109/61 99 02/07/17 19:19 02/07/17 19:19 02/07/17 19:19 02/07/17 19:19 02/07/17 19:19 Temp Pulse Resp BP Pulse Ox 98.7 F 97 H 18 109/61 99 02/07/17 19:19 02/07/17 19:19 02/07/17 19:19 02/07/17 19:19 02/07/17 19:19 - Physical Exam Cardiovascular: Normal S1, Normal S2 Lungs: Positive: Clear to auscultation, Normal air movement Abdomen: Positive: normal appearance, soft, rigidity. Negative: distention, tenderness Genitourinary (Female): Positive: normal external genitalia, other (+blood present) Vagina: Positive: normal moisture, other (no pooling of amniotic fluid seen) Cervix: Positive: other (stict palpated cx 1cm dilated inside of stitch.) Results Result Diagrams: 02/07/17 20:47 02/07/17 20:47 Abnormal lab results 02/07/17 02/07/17 02/07/17 Range/Units 20:47 20:47 20:47 MCH 27 L (28-32) pg Sodium 135 L (137-145) mmol/L BUN 4 L (7-17) mg/dL Creatinine 0.4 L (0.7-1.2) mg/dL Albumin 3.2 L (3.9-5) g/dL HCG, Quant 81687 H (0-4) mIU/mL Urine WBC (Auto) (0.0-6.0) /HPF 02/07/17 Range/Units 21:00 MCH (28-32) pg Sodium (137-145) mmol/L BUN (7-17) mg/dL Creatinine (0.7-1.2) mg/dL Albumin (3.9-5) g/dL HCG, Quant (0-4) mIU/mL Urine WBC (Auto) 21.0 H (0.0-6.0) /HPF All other labs normal. Assessment and Plan - Patient Problems (1) 17 weeks gestation of Current Visit: Yes Status: Acute (2) Incompetence of cervix Current Visit: Yes Status: Acute Plan to address problem: -cerclage in place (3) Oligohydramnios due to rupture of membranes Current Visit: Yes Status: Acute (4) Rupture, membranes, premature Current Visit: Yes Status: Acute Plan to address problem: -admit -antibx -obs for now for any s/ sx of chorio. Pt understands that if she remains stable though she is SROM'd at this gestaional age she will likely deliver within the next few days. Her labor will only be augmented if there is s/sx of chorio.Again she expressed understanding and questions were addressed and answered. (5) Hypothyroidism Current Visit: No Status: Acute Plan to address problem: -continue current meds -stable (6) labor in second trimester Current Visit: No Status: Acute Qualifiers: Fetus number: single or unspecified fetus Plan to address problem: -closely monitor at this time. was to start 17P.
[2017-02-07] MEDS ORDERED: NACL 0.9% 1000 ML 1,000 ML ONE (23:38)
[2017-02-08] MEDS ORDERED: LACTATED RINGERS 1,000 ML IV SCH (02:00)
[2017-02-08] MEDS: ceFAZolin 1 GM in NACL 0.9% 20 ML IV SCH ×2 (02:07→11:58)
[2017-02-08] MEDS: LACTATED RINGERS 1,000 ML IV SCH ×3 (02:19→15:09)
[2017-02-08] MEDS ORDERED: ceFAZolin 1 GM in NACL 0.9% 20 ML IV SCH (06:00)
--- NOTE | 2017-02-08 06:20 | Event Note ---
Date: 02/08/17 (sole scraper note) pt resting quietly No c/o voiced at this time. Denies any LOF, no bleeding. Uterine toco on no ctx recorded. Pt had c/o cramping earlier in the shift. Reviewed POC as noted in 's H&P. All questions addressed. Will consult with . Pt takes Levothyroxine QD Order in chart dosage based on last recorded dose by [facility] Thyroid labs to be drawn
[2017-02-08] MEDS ORDERED: ANCEF/NS 1 GM/50 ML 1 GM/50 ML BAG IV SCH (06:57)
[2017-02-08] MEDS ORDERED: SYNTHROID PO SCH ×2 (08:00)
--- NOTE | 2017-02-08 08:45 | Ultrasound Report ---
ULTRASOUND OB LIMITED History: Premature rupture of membranes Technique: Transabdominal ultrasound with Doppler interrogation. Comparison: 02/07/17. Gestation: Single Position: Breech Amniotic Fluid: Decreased BENIGNO = 1 cm Heart Rate: 0 BPM Comment: No heart rate is detected consistent with demise.
--- NOTE | 2017-02-08 08:57 | Event Note ---
Date: 02/08/17 (demise confirmed by US) made aware of US findings of demise. Agrees with cerclage removal and IOL with cytotex. Pt aware of demise and desires to move forward with removal of cerclage and IOL. Consented. On exam cord has delivered beyond the os. Cervix is 2-3cm,50% Pt placed stirrups, speculum placed, cerclage knots IDed, cervix cleaned with betadine, knot on anterior grasp with pickup easily cut and removed, second knot IDed @ 3o'clock grasp with supervisor picking crew, cut and easily removed. Pt tolerated procedure well. All questions addressed. Orders in EMR
[2017-02-08] MEDS ORDERED: CYTOTEC PR SCH ×2 (09:30→12:00)
[2017-02-08] MEDS ORDERED: STADOL IV PRN (09:30)
[2017-02-08] MEDS ORDERED: CYTOTEC VG SCH (10:00)
[2017-02-08] MEDS: PRENATAL VITAMIN PO SCH (10:00)
[2017-02-08] MEDS: PITOCin/NS 20 UNIT/1000ML DRIP 20 UNITS/1,000 ML BAG IV SCH ×2 (13:00→20:27)
[2017-02-08] MEDS ORDERED: PITOCin/NS 20 UNIT/1000ML DRIP 20,000 MILLIUNITS/1,000 ML BAG IV ONE (13:02)
[2017-02-08] MEDS: MOTRIN PO PRN ×2 (13:19→20:45)
[2017-02-08] MEDS ORDERED: PHENERGAN PO PRN (13:43)
[2017-02-08] MEDS ORDERED: TUCKS PAD TP PRN (13:43)
[2017-02-08] MEDS ORDERED: DULCOLAX PR PRN (13:43)
[2017-02-08] MEDS ORDERED: ZOFRAN IV PRN (13:43)
[2017-02-08] MEDS ORDERED: MILK OF MAGNESIA PO PRN (13:43)
[2017-02-08] MEDS ORDERED: BENADRYL PO PRN (13:43)
--- NOTE | 2017-02-08 13:54 | Procedure Note ---
OB Delivery Note - Delivery Date of Delivery: 02/08/17 Controlled Atmospheric Furnace Brazer: CAROLINA BUNN Estimated blood loss: <100cc - Vaginal Delivery presentation: breech Intrapartum events: other(please specify) (17wk demise PPROM) Delivery induction: other (cytotec) Route of delivery: Delivery placenta: other (placenta remains; occassional clots; no active bleeding) Delivery comments: Checked pt fetus in vaginal Delivered with one pushDemise Cord clamped Fetus to warmer Pt request to see baby Held baby for a few minutes. Placenta remains undelivered Pitocin IVFs aware. - A at 1 minute: 0 at 5 minutes: 0 Gender: Female (17 wk demise)
[2017-02-08] MEDS ORDERED: SODIUM CHLORIDE FLUSH SYRINGE 10 ML IV SCH (14:00)
[2017-02-08] MEDS ORDERED: CYTOTEC PR ONE (15:54)
[2017-02-08] MEDS ORDERED: REGLAN IV NR (16:30)
[2017-02-08] MEDS ORDERED: PEPCID IV NR (16:30)
[2017-02-08] MEDS ORDERED: BICITRA PO ONE (16:30)
--- NOTE | 2017-02-08 16:34 | Event Note ---
Date: 02/08/17 Patient still without deliver placenta with bleeding. Attempt at delivery and the laboring bed without success.Will move to D&C. Sessile patient indications for operative operative delivery of placenta. Discussed risks of bleeding infection and possible puncture of uterus. Patient understands and agrees to proceed
[2017-02-08] MEDS ORDERED: BICITRA ONE (16:35)
[2017-02-08] MEDS ORDERED: PEPCID IV ONE (16:35)
[2017-02-08] MEDS ORDERED: REGLAN ONE (16:35)
--- NOTE | 2017-02-08 16:35 | Anesthesia Consultation ---
Anesthesia Consult and Med Hx Date of service: 02/08/17 - Airway Anesthetic Teeth Evaluation: Good ROM Head & Neck: Adequate Mental/Hyoid Distance: Adequate Mallampati Class: Class II Intubation Access Assessment: Probably Good - Pre-Operative Health Status ASA Pre-Surgery Classification: ASA2 Proposed Anesthetic Plan: General - Pulmonary Hx Asthma: No COPD: No Hx Pneumonia: No - Cardiovascular System Hx Hypertension: No - Central Nervous System Hx Seizures: No Hx Psychiatric Problems: No - Endocrine Hx Renal Disease: No Hx End Stage Renal Disease: No Hx Hypothyroidism: Yes (takes meds) Hx Hyperthyroidism: No - Hematic Hx Anemia: No Hx Sickle Cell Disease: No - Other Systems Hx Alcohol Use: No
--- NOTE | 2017-02-08 16:36 | Anesthesia Day of Surgery ---
Anesthesia Day of Surgery - Day of Surgery Patient Examined: Yes Patient H&P Reviewed: Yes Patient is NPO: No (patient ate @ 12PM, vomited most of it shortly after)
[2017-02-08] MEDS ORDERED: DILAUDID ONE (16:53)
[2017-02-08] MEDS ORDERED: DIPRIVAN 10 MG/ML IV ONE (16:53)
[2017-02-08] MEDS ORDERED: XYLOCAINE MPF 2% ONE (16:55)
[2017-02-08] MEDS ORDERED: METHERGINE IM ONE ×2 (17:20→17:24)
[2017-02-08] MEDS ORDERED: NACL 0.9% 1000 ML 1,000 ML ONE (17:25)
[2017-02-08] MEDS ORDERED: ZOFRAN ONE (17:25)
--- NOTE | 2017-02-08 18:33 | Operative Report ---
Operative Report Operative Report: Date of procedure: 02/08/2017 Pre-operative diagnosis: Retained placenta Post-operative diagnosis: Same Procedure name(s): D&C Surgeon: Barry Puri MD [place] Cutter: [] Anesthesia: General EBL: 100 mL Complications: None Findings: Patient with some cord still in the vagina. Large amount of tissue consistent with placenta Specimen(s): Placenta Procedure: The patient was brought operating room where general anesthesia was induced without difficulty. Patient was placed in dorsal lithotomy position prepped and draped in the usual sterile manner. Speculum placed in the vagina. Findings as noted above. Ring forceps easily dilate the cervix and entered the cervix and grasped the placenta with ring forceps progressively pulled the placenta through the open os. A 10 mm suction catheter was placed through the cervical os. Several passes of the suction catheter removed the uterine contents. General curettage was done with a banjo curettte. On until a gritty sensation was felt throughout the uterine cavity. Further suction with the suction curettage revealed no further products. All instruments were removed patient was hemostatic. She was awakened in the operating room and accompanied to recovery room in good condition.
[2017-02-08 20:51] LABS: Hematocrit 25.5 % (30.3-42.9); Hemoglobin 8.3 gm/dl (10.1-14.3)
[2017-02-09] MEDS ORDERED: NORCO 5/325 PO PRN (00:14)
[2017-02-09] MEDS ORDERED: BENADRYL PO PRN (00:14)
[2017-02-09] MEDS ORDERED: TUCKS PAD TP PRN (00:14)
[2017-02-09] MEDS ORDERED: SODIUM CHLORIDE FLUSH SYRINGE 10 ML IV NR (00:14)
[2017-02-09] MEDS ORDERED: PHENERGAN PO PRN (00:14)
[2017-02-09] MEDS ORDERED: MILK OF MAGNESIA PO PRN (00:14)
[2017-02-09] MEDS ORDERED: DULCOLAX PR PRN (00:14)
[2017-02-09] MEDS ORDERED: TYLENOL PO PRN (00:14)
[2017-02-09] MEDS: COLACE PO SCH ×3 (00:45→21:49)
[2017-02-09 00:53] LABS: Hematocrit 23.4 % (30.3-42.9); Hemoglobin 7.4 gm/dl (10.1-14.3)
[2017-02-09] MEDS ORDERED: NACL 0.9% 500 ML 500 ML IV ONE (03:35)
[2017-02-09] MEDS ORDERED: SYNTHROID PO SCH ×2 (06:00)
[2017-02-09] MEDS ORDERED: BOOSTRIX IM ONE (06:00)
[2017-02-09] MEDS: SYNTHROID PO SCH (06:14)
--- NOTE | 2017-02-09 08:00 | Progress Note ---
Assessment and Plan patient resting without complaints; freddie scant, H&H 7.4/23.4 (acute anemia from blood loss, denies feeling light headed or dizzy w/ ambulation). afebrile, maternal tachycardia noted, b/ps NL. Will start PO FE and continue to monitor. one unit RBC ready for transfusion if needed - will consult Dr. Estrella. Discussed plan with patient for continued observation with anticipated d/c home tomorrow - patient verbalized understanding. - Patient Problems (1) SAB (spontaneous ) Current Visit: Yes Status: Acute (2) 17 weeks gestation of Current Visit: Yes Status: Acute (3) Anemia due to blood loss, acute Onset Date: 02/09/17 Current Visit: Yes Status: Acute Plan to address problem: asymptomatic, PO FE continued assessment of need for transfusion Subjective - Subjective Date of service: 02/09/17 Principal diagnosis: postop day #1 s/p SAB w/ D&C Patient reports: appetite normal, voiding normally, pain well controlled, ambulating normally, no dizzy ambulation, no nauseated Rock: Objective - Vital Signs Latest vital signs: Vital Signs Temp Pulse Resp BP BP Pulse Ox 02/09/17 05:02 99 F 117 H 18 105/54 02/08/17 22:53 98.5 F 88 18 95/40 02/08/17 22:16 92 H 99 02/08/17 22:11 103 H 100 02/08/17 22:06 94 H 100 02/08/17 22:04 99 H 99/53 02/08/17 22:01 109 H 100 02/08/17 21:56 88 99 02/08/17 21:51 84 99 02/08/17 21:49 78 95/54 02/08/17 21:46 84 99 02/08/17 21:41 87 98 02/08/17 21:36 81 100 02/08/17 21:34 82 95/51 02/08/17 21:31 84 100 02/08/17 21:26 93 H 100 02/08/17 21:21 81 99 02/08/17 21:19 87 90/52 02/08/17 21:16 94 H 100 02/08/17 21:11 91 H 100 02/08/17 21:06 102 H 100 02/08/17 21:04 98 H 96/56 12/04/17 21:01 90 100 02/08/17 20:56 88 100 02/08/17 20:51 105 H 100 02/08/17 20:49 114 H 102/52 02/08/17 20:46 107 H 100 02/08/17 20:45 18 02/08/17 20:41 98 H 100 02/08/17 20:36 97 H 100 02/08/17 20:34 96 H 99/54 02/08/17 20:31 100 H 100 02/08/17 20:26 96 H 100 02/08/17 20:21 98 H 100 02/08/17 20:19 102 H 99/57 02/08/17 20:16 89 100 02/08/17 20:11 90 100 02/08/17 20:06 92 H 99 02/08/17 20:04 91 H 94/51 02/08/17 20:01 91 H 98 02/08/17 19:58 97.9 F 89 16 94/51 100 02/08/17 19:56 89 99 02/08/17 19:51 93 H 100 02/08/17 19:49 90 98/55 02/08/17 19:46 87 99 02/08/17 19:41 93 H 98 02/08/17 19:36 88 99 02/08/17 19:34 83 90/55 02/08/17 19:31 93 H 96 02/08/17 19:26 85 97 02/08/17 19:21 81 97 02/08/17 19:19 79 88/53 02/08/17 19:16 82 97 02/08/17 19:11 79 97 02/08/17 19:06 89 94 02/08/17 19:05 79 94 02/08/17 19:04 72 94/55 02/08/17 18:50 82 18 93/53 98 02/08/17 18:48 97.9 F 02/08/17 18:45 87 17 94/50 98 02/08/17 18:40 75 16 95/48 97 02/08/17 18:35 83 12 100/51 99 02/08/17 18:30 77 17 97/51 97 02/08/17 18:25 81 18 99/50 98 02/08/17 18:20 77 13 95/50 96 02/08/17 18:15 79 16 96/50 98 02/08/17 18:10 82 16 102/51 98 02/08/17 18:05 80 19 96/46 96 02/08/17 18:00 81 16 98/50 97 02/08/17 17:55 84 14 93/47 97 02/08/17 17:50 87 18 101/51 96 02/08/17 17:45 93 H 17 96/51 96 02/08/17 17:42 95 H 12 94 02/08/17 17:40 97.9 F 02/08/17 16:31 103 H 100 02/08/17 16:26 141 H 87 02/08/17 16:25 133 H 108/52 02/08/17 16:21 120 H 98 02/08/17 16:16 109 H 100 02/08/17 16:11 102 H 100 02/08/17 16:08 97 H 106/56 02/08/17 16:06 114 H 100 02/08/17 16:01 105 H 100 02/08/17 15:56 108 H 99 02/08/17 15:54 118 H 107/53 02/08/17 15:51 116 H 98 02/08/17 15:46 116 H 99 02/08/17 15:41 122 H 98 02/08/17 15:38 116 H 103/58 02/08/17 15:36 121 H 98 02/08/17 15:31 118 H 98 02/08/17 15:26 126 H 97 02/08/17 15:23 120 H 103/59 02/08/17 15:21 117 H 99 02/08/17 15:16 108 H 98 02/08/17 15:11 117 H 97 02/08/17 15:08 115 H 109/57 02/08/17 15:06 124 H 99 02/08/17 15:01 122 H 98 02/08/17 14:56 114 H 98 02/08/17 14:38 117 H 103/55 02/08/17 14:23 109 H 99/56 02/08/17 14:09 117 H 109/58 02/08/17 13:05 98.3 F 16 02/08/17 12:02 93 H 106/58 02/08/17 10:59 98.4 F 02/08/17 08:50 98.2 F 16 Intake and Output 02/08/17 02/08/17 02/09/17 15:59 23:59 07:59 Intake Total 0546.789 8104.25 120 Output Total 400 Balance 1808.147 0671.25 120 Intake: IV 2461.917 9956.25 Lactated Ringers 1,000 ml 1158.333 @ 125 mls/hr IV DIRECT KELLI Rx#:[id number] PITOCin/NS 20 UNIT/1000ML 931.25 DRIP 20 units In 1,000 ml @ As Directed IV DIRECT KELLI Rx#:[id number] Intake, Free Water 120 Output: Urine 300 Indwelling Catheter 200 Emesis 100 Other: Total, Output Amount 100 Estimated Blood Loss 100 100 - Exam Breasts: Present: normal Cardiovascular: Present: Regular rate Lungs: Present: Clear to auscultation, Normal air movement Abdomen: Present: normal appearance, soft Vulva: both: normal Uterus: Present: normal, firm, fundal height below umbilicus Extremities: Present: normal - Labs Labs: Abnormal lab results 02/08/17 02/08/17 02/08/17 Range/Units 07:35 07:35 20:33 Hgb 8.3 L D (10.1-14.3) gm/dl Hct 25.5 L D (30.3-42.9) % TSH 0.031 L (0.270-4.200) mlU/mL Free T4 1.59 H (0.76-1.46) ng/dL 02/09/17 Range/Units 00:29 Hgb 7.4 L (10.1-14.3) gm/dl Hct 23.4 L (30.3-42.9) % TSH (0.270-4.200) mlU/mL Free T4 (0.76-1.46) ng/dL
[2017-02-09 08:39] LABS: Hemoglobin 6.5 gm/dl (10.1-14.3)
[2017-02-09 08:48] LABS: Hematocrit 19.5 % (30.3-42.9)
[2017-02-09] MEDS ORDERED: PRENATAL VITAMIN PO SCH (10:00)
[2017-02-09] MEDS: MOTRIN PO SCH ×2 (12:01→23:58)
[2017-02-09] MEDS: PRENATAL VITAMIN PO SCH (12:02)
[2017-02-09] MEDS: FEOSOL PO SCH ×3 (12:11→21:49)
[2017-02-09] MEDS ORDERED: M-M-R II VACCINE SUB-Q ONE (13:43)
[2017-02-09 16:04] LABS: Hematocrit 21.9 % (30.3-42.9); Hemoglobin 7.2 gm/dl (10.1-14.3)
[2017-02-10] MEDS: SYNTHROID PO SCH (05:40)
[2017-02-10] MEDS: MOTRIN PO SCH (05:40)
[2017-02-10 07:17] LABS: Hematocrit 23.1 % (30.3-42.9); Hemoglobin 7.5 gm/dl (10.1-14.3)
--- NOTE | 2017-02-10 08:30 | Progress Note ---
Assessment and Plan patient resting, desires d/c home today. Mookiehis scant, H&H this AM 7.5/23.1 ( anemia d/t blood loss, asymptomatic), patient received transfusion yesterday. VSSAF. Plan for f/u in office in 2 weeks. - Patient Problems (1) SAB (spontaneous ) Current Visit: Yes Status: Acute (2) 17 weeks gestation of Current Visit: Yes Status: Acute (3) Anemia due to blood loss, acute Onset Date: 02/09/17 Current Visit: Yes Status: Acute Subjective - Subjective Date of service: 02/10/17 Principal diagnosis: postop day #2 s/p SAB w/ D&C, blood transfusion Patient reports: appetite normal, voiding normally, pain well controlled, ambulating normally, no dizzy ambulation, no nauseated Objective - Vital Signs Latest vital signs: Vital Signs Temp Pulse Resp BP BP Pulse Ox 02/10/17 04:30 97 F L 86 18 97/52 100 02/09/17 23:40 98.5 F 112 H 18 84/39 99 02/09/17 20:35 98.0 F 106 H 18 94/55 100 02/09/17 16:00 98.9 F 96 H 22 97/56 98 02/09/17 11:15 99.1 F 104 H 18 97/47 97 02/09/17 10:49 99.0 F 102 H 18 102/47 98 02/09/17 10:34 99.2 F 102 H 18 96/52 02/09/17 10:31 115 H 18 107/48 97 02/09/17 10:25 98.9 F 114 H 18 114/51 02/09/17 08:44 99 H 22 93/49 97 02/09/17 08:43 98.8 F 103 H 22 93/49 97 Intake and Output 02/09/17 02/10/17 02/10/17 23:59 07:59 15:59 Intake Total 840 120 Output Total 1420 Balance -580 120 Intake: Oral 840 120 Output: Urine 1420 Indwelling Catheter 850 Void 570 Other: Total, Intake Amount 240 120 Total, Output Amount 450 # Voids Void 1 1 - Exam Breasts: Present: normal Cardiovascular: Present: Regular rate Lungs: Present: Clear to auscultation, Normal air movement Abdomen: Present: normal appearance, soft Vulva: both: normal Uterus: Present: normal, firm, fundal height below umbilicus Extremities: Present: normal - Labs Labs: Abnormal lab results 02/09/17 02/09/17 02/09/17 Range/Units 08:19 08:23 14:58 Hgb 6.5 L 7.2 L (10.1-14.3) gm/dl Hct 19.5 L* 21.9 L (30.3-42.9) % TSH (0.270-4.200) mlU/mL Free T4 (0.76-1.46) ng/dL Crossmatch See Detail 02/10/17 02/10/17 02/10/17 Range/Units 07:03 07:03 07:03 Hgb 7.5 L (10.1-14.3) gm/dl Hct 23.1 L (30.3-42.9) % TSH 0.028 L (0.270-4.200) mlU/mL Free T4 1.97 H (0.76-1.46) ng/dL Crossmatch
--- NOTE | 2017-02-10 08:34 | Discharge Summary ---
Providers - Providers Date of Admission: 02/08/17 08:02 Date of discharge: 02/10/17 (desires d/c) Attending physician: JERSEY BLANCAS 02/09/17 09:22 Consult to Case Management [CONS] Routine Services Needed at Discharge: Sonogram Technician Notified:: yes Phone number called:: [phone] Was contact made?: No If yes, spoke with:: laura Time called:: 09:25 Comment:: notified Additional Physician Instructions: demise 17 + weeks 2nd demise in 2017 Primary care physician: ANGELI POWELL Hospitalization Reason for admission: other (SAB - 17 week delivery) Delivery: other (vaginal del of 17 week fetus w/ D&C of placenta) Episiotomy: none Laceration: none Other procedures: other (D&C for placenta, transfusion) complications: retained placenta, transfusion Discharge diagnosis: other (17 week SAB) Hospital course: vaginal of 17week fetus, D&C for placenta, blood transfusion for anemia d /t blood loss Condition at discharge: Good Disposition: DC-01 TO HOME OR SELFCARE - Discharge Diagnoses (1) SAB (spontaneous ) Status: Acute (2) 17 weeks gestation of Status: Acute (3) Anemia due to blood loss, acute Status: Acute Plan - Provider Discharge Summary Activity: routine, no sex for 6 weeks, no heavy lifting 4 weeks, no strenuous exercise Diet: routine Instructions: routine Additional instructions: [] Smoking cessation referral if applicable(refer to patient education folder for contact #) [] Refer to [facility] Booklet Call your doctor immediately for: * Fever > 100.5 * Heavy vaginal bleeding ( >1 pad per hour) * Severe persistent headache * Shortness of breath * Reddened, hot, painful area to leg or breast * Drainage or odor from incision. * Keep incision clean and dry at all times and follow doctor's instructions regarding bathing/showering - Follow up plan Follow up: PRIMARY CAREMD [Referring] - 3-5 Days JERSEY BLANCAS MD [Staff Physician] - 14 Days (Our sincerest condolences on the loss of your baby. Please call [phone] to schedule follow up appointment in 2 weeks. Call for any questions or concerns. )
[2017-02-10] MEDS: COLACE PO SCH (08:37)
[2017-02-10] MEDS: FEOSOL PO SCH (08:37)
[2017-02-10] MEDS: PRENATAL VITAMIN PO SCH (08:37)
[2017-02-10 19:02] VITALS: BP 98/58
== END 2017-02-10 17:30 | disposition home or self-care (01) | DRG 770 ==
LOC: ED 18:58 → LD 22:53 → OBSVTOIN 02-08 08:02 → LD 02-08 18:13 → OB 02-08 22:48
PROVIDERS: ADMIT Obstetrics & Gynecology; ATTEND Obstetrics & Gynecology
PROC: 10D17ZZ Extraction of Products of Conception, Retained, Via Natural or Artificial Opening (ICD-10-PCS; principal; 2017-02-08)
PROC: 3E0234Z Introduction of Serum, Toxoid and Vaccine into Muscle, Percutaneous Approach (ICD-10-PCS; 2017-02-09)
PROC: 30233N1 Transfusion of Nonautologous Red Blood Cells into Peripheral Vein, Percutaneous Approach (ICD-10-PCS; 2017-02-09)
DX: O03.4 Incomplete spontaneous abortion without complication (principal); O34.32 Maternal care for cervical incompetence, second trimester; O41.02X0 Oligohydramnios, second trimester, not applicable or unspecified; D62 Acute posthemorrhagic anemia; Z37.1 Single stillbirth; O99.012 Anemia complicating pregnancy, second trimester; O99.282 Endocrine, nutritional and metabolic diseases complicating pregnancy, second trimester; E03.9 Hypothyroidism, unspecified; O42.912 Preterm premature rupture of membranes, unspecified as to length of time between rupture and onset of labor, second trimester; Z3A.17 17 weeks gestation of pregnancy; Z79.899 Other long term (current) drug therapy; Z23 Encounter for immunization
CPT/HCPCS: 36415; 59200; 76805; 76815; 80053; 81001; 84439; 84443; 84481; 84702; 85014; 85018; 85025; 86850; 86900; 86901; 86920; 88305; 96360; G0378; J0690; J1170; J2210; J2405; J2590; J2704; J2765; J7030; J7040; J7120; P9016